=== PATIENT | female | born 1965 | race Caucasian/White ===

== ENCOUNTER 2023-07-27 08:02 | Emergency (ER) | payer OTHER, SELFPAY ==
[2023-07-27 08:10] VITALS: BP 165/86; PULSE 84; RESP 20; TEMP 37.7; O2SAT 98
--- NOTE | 2023-07-27 08:27 | ED.GENADULT ---
HPI - General Adult General Chief complaint: Upper Respiratory Infection Stated complaint: Sore Throat/Cough/Headache Source: patient Mode of arrival: ambulatory Limitations: no limitations History of Present Illness HPI narrative: Patient presents for evaluation of sick symptoms since yesterday. Symptoms include fever, sore throat, headache, rhinorrhea, body aches, nonproductive cough and nausea. She denies any shortness of breath, chills, vomiting, diarrhea. No recent sick contacts to her knowledge. She is not taking any medications to assist with her symptoms. Related Data Home Medications Medication Instructions Recorded Confirmed levothyroxine 75 mcg tablet mcg 07/27/23 lisinopril 20 mg tablet mg 07/27/23 Allergies Allergy/AdvReac Type Severity Reaction Status Date / Time No Known Allergies Allergy Verified 07/27/23 08:14 Review of Systems Review of Systems: CONSTITUTIONAL: Reports fever. Denies chills, or sweats. EYES: Denies visual changes, redness, or discharge. ENT: Reports sore throat and rhinorrhea. Denies otalgia. CARDIOVASCULAR: Denies chest pain, palpitations, or edema. RESPIRATORY: Reports cough. Denies shortness of breath. GASTROINTESTINAL: Denies abdominal pain, nausea, vomiting, or diarrhea. GENITOURINARY: Denies dysuria or hematuria. SKIN: Denies rash or itching. MUSCULOSKELETAL: Reports generalized body aches. NEUROLOGIC: Reports headache. Denies numbness, dizziness, or weakness. PSYCHIATRIC: Denies anxiety or depression. PMFSH Past Medical History Medical History Hypertension Surgical History Surgical History No pertinent past surgical history Family History Family History Mother Family history non-contributory Social History Social History Substance use: never Living arrangements: with family Gender identity (if verbalized by the patient): Female Sexual Orientation (if Verbalized by the Patient): Straight or Heterosexual Spiritual care concerns: No Exam Narrative: GENERAL: Well-appearing, well-nourished, and in no acute distress. HEAD: Normocephalic, atraumatic. EYES: PERRLA and EOMI. ENT: Nares clear, no rhinorrhea or epistaxis. Mucous membranes moist. Oropharynx without tonsillar hypertrophy exudate or other lesions. Bilateral TMs pearly mejia nonbulging NECK: Supple. No adenopathy or masses. No carotid bruits or JVD CHEST: Clear to auscultation. No respiratory distress. No wheezes rales or rhonchi HEART: Regular rate and rhythm. No murmur heard. Normal peripheral pulses. ABDOMEN: Soft, nontender, nondistended, normal active bowel sounds. EXTREMITIES: Normal range of motion. No edema. SKIN: Warm, dry, no rash. NEURO: No focal deficits. Alert and oriented x3. PSYCH: Normal mood and affect. Course Course Emergency Course: This is a 57-year-old female who presented for evaluation of sick symptoms. Strep and COVID were positive. Will discharge with Zofran and amoxicillin. Increase hydration. Bqku-[id number] agents for symptom management. Quarantine in alignment with CDC recommendations. Follow-up with primary provider. Go to the ER for worsening symptoms. Patient in agreement with plan of care. Level of Care: Express Care Visit Vital Signs Vital signs: Vital Signs Temperature 37.7 C H 07/27/23 08:10 Pulse Rate 84 07/27/23 08:10 Respiratory Rate 20 07/27/23 08:10 Blood Pressure 165/86 H 07/27/23 08:10 Pulse Oximetry 98 07/27/23 08:10 Oxygen Delivery Room Air 07/27/23 08:10 Temperature 37.7 C H 07/27/23 08:10 Pulse Rate 84 07/27/23 08:10 Respiratory Rate 20 07/27/23 08:10 Blood Pressure 165/86 H 07/27/23 08:10 Pulse Oximetry 98 07/27/23 08:10 Oxygen Deli
== END 2023-07-27 08:30 | disposition home or self-care (01) ==
PROVIDERS: Emergency Provider Nurse Practitioner
DX: U07.1 COVID-19 (principal); I10 Essential (primary) hypertension; Z79.899 Other long term (current) drug therapy
CPT/HCPCS: 87426; 87804; 87880; 99203; C9803; G0463

== ENCOUNTER 2023-12-11 09:14 | Emergency (ER) | payer OTHER, SELFPAY ==
[2023-12-11 09:20] VITALS: BP 120/71; PULSE 76; RESP 20; TEMP 36.9; O2SAT 100
--- NOTE | 2023-12-11 10:16 | ED.GENADULT ---
HPI - General Adult General Chief complaint: Extremity Problem,Nontraumatic Stated complaint: Left foot pain Time Seen by Provider: 12/11/23 09:52 Source: patient Mode of arrival: ambulatory Limitations: no limitations History of Present Illness HPI narrative: Patient presents for evaluation of pain in the arch of her left foot for the last 2 months. 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 She states pain is constant, 8/10 in severity and sharp. She denies any precipitating event or injury. She tried taking aleve without much improvement in her symptoms. Denies other symptoms. Related Data Home Medications Medication Instructions Recorded Confirmed levothyroxine 75 mcg tablet 75 mcg PO DAILY 07/27/23 12/11/23 lisinopril 20 mg tablet (Zestril) 20 mg PO DAILY 07/27/23 12/11/23 topiramate 50 mg tablet 50 mg PO DAILY 12/11/23 12/11/23 Allergies Allergy/AdvReac Type Severity Reaction Status Date / Time No Known Allergies Allergy Verified 12/11/23 09:33 Review of Systems Review of Systems: CONSTITUTIONAL: Denies fever, chills, or sweats. EYES: Denies visual changes, redness, or discharge. ENT: Denies rhinorrhea, congestion, sore throat, or otalgia. CARDIOVASCULAR: Denies chest pain, palpitations, or edema. RESPIRATORY: Denies cough or dyspnea. GASTROINTESTINAL: Denies abdominal pain, nausea, vomiting, or diarrhea. GENITOURINARY: Denies dysuria or hematuria. SKIN: Denies rash or itching. MUSCULOSKELETAL: Reports pain in the arch of the left foot NEUROLOGIC: Denies headache, numbness, dizziness, or weakness. PSYCHIATRIC: Denies anxiety or depression. [facility] Past Medical History Medical History Hypertension Surgical History Surgical History No pertinent past surgical history Family History Family History Mother Family history non-contributory Social History Social History Substance use: never Living arrangements: with family Gender identity (if verbalized by the patient): Female Sexual Orientation (if Verbalized by the Patient): Straight or Heterosexual Spiritual care concerns: No Exam Narrative: GENERAL: Well-appearing, well-nourished, and in no acute distress. HEAD: Normocephalic, atraumatic. EYES: PERRLA and EOMI. ENT: Nares clear, no rhinorrhea or epistaxis. Mucous membranes moist. Oropharynx without tonsillar hypertrophy exudate or other lesions. Bilateral TMs pearly mejia nonbulging NECK: Supple. No adenopathy or masses. No carotid bruits or JVD CHEST: Clear to auscultation. No respiratory distress. No wheezes rales or rhonchi HEART: Regular rate and rhythm. No murmur heard. Normal peripheral pulses. ABDOMEN: Soft, nontender, nondistended, normal active bowel sounds. EXTREMITIES: Normal range of motion. No edema. There is tenderness in the plantar aspect of the arch of the left foot SKIN: Warm, dry, no rash. NEURO: No focal deficits. Alert and oriented x3. PSYCH: Normal mood and affect. Course Course Emergency Course: This is a 58-year-old female who presented for evaluation of pain in the arch of the left foot. This is a classic presentation of plantar fasciitis. I did offer to check an x-ray to rule out alternative pathology including stress fracture. Patient declined. Will purchase arch supports. 800 mg ibuprofen at home for pain. Follow-up with primary provider. Go to the ER for worsening symptoms. Patient in agreement with plan care. Level of Care: Express Care Visit Vital Signs Vital signs: Vital Signs Temperature 36.9 C 12/11/23 09:20 Pulse Rate 76 12/11/23 09:20 Respiratory Rate 20 12/11/23 09:20 Blood Pressure 120/71 12/11/23 09:20 Pulse Oximetry 100 12/11/23 09:20 Oxygen oDnna
== END 2023-12-11 09:58 | disposition home or self-care (01) ==
PROVIDERS: Emergency Provider Nurse Practitioner
DX: M72.2 Plantar fascial fibromatosis (principal); I10 Essential (primary) hypertension
CPT/HCPCS: 99213; G0463

== ENCOUNTER 2024-07-03 14:23 | Outpatient (CLI) | payer OTHER, SELFPAY ==
--- NOTE | ~2024-07-03 | XR_ITS ---
Left foot Technique: AP, oblique, and lateral views were obtained. Clinical History: Heel pain Findings: No acute fracture or dislocation is seen. Osseous alignment is anatomic. Joint spaces are p reserved without erosive or degenerative change. Small plantar calcaneal spur noted. Soft tissues are unremarkable. Impression: Small plantar calcaneal spur. Reviewed, dictated and finalized at location . Impression: Small plantar calcaneal spur.
== END 2024-07-03 14:24 | disposition home or self-care (01) ==
LOC: MICIMG 14:25
DX: M77.32 Calcaneal spur, left foot (principal)
CPT/HCPCS: 73630

== ENCOUNTER 2024-09-14 10:39 | Emergency (ER) | payer OTHER, SELFPAY ==
--- NOTE | 2024-09-14 10:42 | ED_ITS ---
HPI - Female Genitourinary General Chief complaint: Urogenital-Female Stated complaint: Urinary Problem Time Seen by Provider: 09/14/24 10:51 Source: patient and RN notes reviewed Mode of arrival: ambulatory Limitations: no limitations History of Present Illness HPI Narrative: 59-year-old female presents with concern of for 2 day history of urinary frequency, urgency, dysuria, suprapubic pressure. She denies fever, aches chills sweats, nausea, vomiting. Reports headache. She took azo 4 hours ago MD elicited complaint: UTI Related Data Home Medications ?Medication ?Instructions ?Recorded ?Confirmed ?Last Taken ?Type levothyroxine 75 mcg tablet 75 mcg PO DAILY 07/27/23 09/14/24 Unknown History lisinopril 20 mg tablet (Zestril) 20 mg PO DAILY 07/27/23 09/14/24 Unknown History topiramate 50 mg tablet 50 mg PO DAILY 12/11/23 09/14/24 Unknown History acetaminophen 300 mg-codeine 30 mg tablet 09/14/24 Unknown History tablet Allergies Allergy/AdvReac Type Severity Reaction Status Date / Time No Known Allergies Allergy Verified 09/14/24 10:45 Review of Systems Review of Systems: CONSTITUTIONAL: Denies malaise, chills, sweats, or fever. CARDIOVASCULAR: Denies chest pain, palpitations, or edema. RESPIRATORY: Denies cough or dyspnea. GASTROINTESTINAL: Denies abdominal pain, nausea, vomiting, diarrhea GENITOURINARY: Reports dysuria, frequency, urgency, suprapubic pressure. Denies flank pain or hematuria. SKIN: Denies rash or itching. MUSCULOSKELETAL: Denies back pain or myalgia. All systems reviewed & are unremarkable except as noted in HPI and below PMFSH Past Medical History Medical History Hypertension Surgical History Surgical History No pertinent past surgical history Family History Family History Mother Family history non-contributory Social History Social History Substance use: never Living arrangements: with family Gender identity (if verbalized by the patient): Female Sexual Orientation (if Verbalized by the Patient): Straight or Heterosexual Spiritual care concerns: No Comments At time of signature, agree with nursing past medical, surgical, social and family history. There is no relevant family history pertinent to the presenting complaint Exam Narrative: GENERAL: Well-appearing, well-nourished, and in no acute distress. HEAD: Normocephalic. EYES: PERRLA, conjunctivae clear. NECK: Supple. No lymphadenopathy CHEST: Clear to auscultation. No respiratory distress. HEART: Regular rate and rhythm. ABDOMEN: Soft, nontender upon palpation, nondistended, normal active bowel s ounds, no palpable or pulsatile masses, no guarding. No CVA tenderness SKIN: Warm, dry, no rash. NEURO: Alert and oriented x3. PSYCH: Normal mood and affect Course Course Emergency Course: Patient is aware of diagnosis, understands and agrees to treatment plan. Anticipatory guidance given. Patient agrees to follow-up as directed and is aware of reasons to seek care at the emergency department. Portions of this record may have been created with voice recognition software Level of Care: Express Care Visit Vital Signs Vital signs: Reviewed. MDM - Female Genitourinary MDM Narrative Medical decision making narrative: Exam findings and UA show no acute concerns or changes; patient is non-toxic appearing and is in no distress. Patient is appropriate for outpatient treatment and follow-up. Differential Diagnosis Differential diagnosis: Likely urinary tract infection and cystitis Critical Care Time Critical Care Time Critical Care Time: No Discharge Plan Discharge Clinical Impression: Symptoms of urinary tract infection Patient Disposition: Home, Self-Care Condition: Stable Instructions: Antibiotic Form, Urinary Tract Infection in Women (ED) Additional Instructions: We will send a urine culture to the lab; if the culture identifies an organism that the prescribed antibiotic will not treat, you will receive a phone call from an urgent care staff member and an appropriate antibiotic will be prescribed. -Your symptoms should begin to improve within a day of starting antibiotics. But you should finish all the antibiotic pills you get. Otherwise your infection might come back. -Also recommend: increase water intake. Tylenol/ibuprofen as needed for pain or fever -Follow-up with your primary care provider for urine recheck or seek ER visit if condition worsens with high fever, nausea, vomiting and severe back pain. Patient Language: Upper Sorbian Prescriptions: New amoxicillin-pot clavulanate 875-125 mg tablet 1 tablet PO Q12H 10 Days Qty: 20 0RF No Action acetaminophen-codeine 300-30 mg tablet lisinopril [Zestril] 20 mg tablet 20 mg PO DAILY levothyroxine 75 mcg tablet 75 mcg PO DAILY topiramate 50 mg tablet 50 mg PO DAILY ibuprofen 800 mg tablet 800 mg PO TID PRN (Reason: pain) Qty: 30 0RF Follow-up/Referrals: UNKNOWN,DOCTOR [Primary Care Provider] - Stand Alone Forms: Work/School Release IP Time of Disposition: 11:01
[2024-09-14 10:46] VITALS: BP 168/94; PULSE 82; RESP 16; TEMP 37; O2SAT 100
== END 2024-09-14 11:04 | disposition home or self-care (01) ==
PROVIDERS: Emergency Provider Nurse Practitioner
DX: R35.0 Frequency of micturition (principal); R39.15 Urgency of urination; R30.0 Dysuria; I10 Essential (primary) hypertension
CPT/HCPCS: 87077; 87086; 87186; 99213; G0463

== ENCOUNTER 2024-11-23 09:45 | Outpatient (CLI) | payer OTHER, SELFPAY ==
--- NOTE | ~2024-11-23 | MM_ITS ---
EXAMINATION: MM screening yrn BI w aubrey HISTORY: Screening TECHNIQUE: Craniocaudal and mediolateral oblique 3-D tomosynthesis images were obtained and synthetic 2-D images were generated. CAD analysis was submitted and interpreted. COMPARISON: No prior mammogram is available for comparison at this institution. BREAST PARENCHYMAL COMPOSITION: Not Dense. The breasts are almost entirely fatty. FINDINGS: There is no evidence of suspicious mass, calcification, or architectural distortion to sugg est malignancy in either breast. There has been no suspicious interval change. IMPRESSION: 1. No mammographic evidence of malignancy. 2. Recommend routine screening mammography in one year. BI-RADS Category 1: Negative Reviewed, dictated and finalized at location B.
== END 2024-11-23 09:46 | disposition home or self-care (01) ==
DX: Z12.31 Encounter for screening mammogram for malignant neoplasm of breast (principal)
CPT/HCPCS: 77063; 77067

== ENCOUNTER 2025-08-06 08:04 | Emergency (ER) | payer OTHER, SELFPAY ==
--- OUTSIDE RECORDS SUMMARY | 2024-06-06 04:32 | XMS_ITS ---
Author Organization [facility] [employer] [facility] Address [address] [place] [address] Care Team Providers Care Electric Meter Tester Helper Name Role Phone Bisi Antony Primary Care Provider REASON FOR VISIT PRTL: Gynecology Referral Encounters Encounter Location Date Provider Diagnosis [address] [address] 06/06/2024 Bisi Antony PLAN OF TREATMENT No Information Progress Notes * Lianet VAIL LuzDOB:1965 (58 yo F)Acc No.[id number]:06/06/2024 Patient: Lianet VAIL :1965 Age:58 Y Sex:Female Phone: Address:[address] [place] [id number] Subjective: * Chief Complaints: * PRTL: Gynecology Referral * Medical History: * Surgical History: * Hospitalization/Major Diagno stic Procedure: * Medications: Objective: Assessment: Plan: * Treatment: * Procedure Codes: * true * Date:
--- OUTSIDE RECORDS SUMMARY | 2024-07-10 05:00 | XMS_ITS ---
Author Organization [facility] [employer] [facility] Address [address] [place] [address] Care Team Providers Care Parking Meter Servicer Name Role Phone Bsii Antony Primary Care Provider ALLERGIES Allergen (clinical drug ingredient) Drug/Non Drug Allergy documented on EMR Reaction Allergy Type Onset Date Status codeine Codeine vomiting Drug Allergy Active REASON FOR REFERRAL Reason Chronic LT heel pain , noted calcaneal spur on XR, no improvement in ssx with conservative tx. Thank you! Diagnosis 1 Left foot pain (M79. 672) Referral Organization [facility] Referring Provider First Name Bisi Referring Provider Last Name Cassia Referring Provider Speciality Family Med icine Referred Provider [facility] Referred Provider Specialty Podiatry Referral Priority Routine REASON FOR VISIT F/U XR, BSV - TELEPHONE ENCOUNTER MEDICATIONS Medication SIG (Take, Route, Frequency, Duration) Notes Start Date End Date Status Amitriptyline HCl 10 MG 1 tablet at bedtime Orally Once a day for 30 days 02/28/2024 Active Meloxicam 15 MG 1/2-1 tablet Orally Once a day as needed for pain for 30 days 04/10/2024 Active hydrOXYzine HCl 25 MG 1/2-1 tablet as needed Orally twice daily for 30 days 02/28/2024 Active Escitalopram Oxalate 10 MG 1 tablet at bedtime Orally Once a day for 90 days 02/28/2024 Active Famotidine 20 MG 1 tablet Orally Once a day as needed for 90 days heartburn/reflux 03/25/2023 Active Levothyroxine Sodium 75 MCG 1 tablet in the morning on an empty stomach Orally Once a day for hypothyroidism for 90 days hypothyroid Active Lisinopril-hydroCHLO ROthiazide 20-12.5 MG 1 tablet in the morning Orally Once a day for 100 days 05/22/2024 Active PROBLEMS Problem Type ICD Code Onset Dates Problem Status W/U Status Risk SNOMED Code Notes Problem Hypothyroid (E03.9) Active confirmed Hypothyroid (02753922) Problem Hypertension (I10) Active confirmed Hypertension (73288619) Problem Migraine (G43.909) Active confirmed Migraine (17360392) VITAL SIGNS Height 64 in 07/10/2024 TELEPHONE ENCOUNTER Encounters Encounter Location Date Provider Diagnosis [facility] [address] [place] [address] 07/10/2024 Bisi Antony Left foot pain M79.672 ASSESSMENTS Encounter Date Diagnosis Assessment Notes Treatment Notes Treatment Clinical Notes Section Notes 07/10/2024 Left foot pain (ICD-10 - M79.672) Reviewed LT foot XR with pt. XR result indicates small calcaneal spur. Encouraged pt to rest foot frequently throughout the day, wear supportive shoes, consider orthodics, ice/heat applications, and discussed analgesics. Continue rx'd meloxicam (avoiding all other NSAIDs) with food, but will add 1g acetaminophen TID PRN for additional pain relief. As pt reports pain continues w/o any improvement since ANNIE, will refer to podiatry. Pt voiced understanding and agreement with POC as discussed. All questions and concerns were addressed to pt satisfaction. PLAN OF TREATMENT Referrals Referral Date Details Chronic LT heel pain , noted calcaneal spur on XR, no improvement in ssx with conservative tx. Thank you! , [facility] Next Appt Details Follow Up: prn, Reason: Progress Notes * Lianet ROACH AnnDOB:1965 (58 yo F)Acc No.[id number]:07/10/2024 Patient: Lianet ROACH Provider: Bisi Antony APRN :1965 Age:58 Y Sex:Female Date:07/10/2024 Phone: Address:[address] [place], [place] [id number] Subjective: * Chief Complaints: * F/U XRBSV - TELEPHONE ENCOUNTER * HPI: *: Pt presents via TELEPHONE ENCOUNTER for F/U LT heel pain and XR. C all placed at: 1107. No answer, VM left. Pt returned call at 11:11. T his encounter was undertaken via [video/telephone]. I introduced myself as ANDREW Dozier, and greeted the patient by name and then verified their location [[place]]. We reviewed the appropriateness of virtual care for this visit and the limitations of telemedicine. All issues below were discussed and addressed but no physical exam was performed except as documented. If it was felt the patient should be evaluated [id number], they were directed to the clinic for care either now or at a subsequent visit as indicated below. Verbal consent for telemedicine visit obtained from the patient. * ROS: General/Constitutional: General Denies:, chills, fatigue, fever. Podiatric LEFT FOOT PAIN WITH WALKING OR PRESSURE. SLIGHT SWELLING TO SIDE OF FOOT SOMETIMES. DENIES:, burning, wound, numbness. * Medical History: * Surgical History: * Hospitalization/Major Diagno stic Procedure: * Medications: TakingLevothyroxine Sodium 75 MCG Tablet 1 tablet in the morning on an empty stomach Orally Once a day for hypothyroidism Amitriptyline HCl 10 MG Tablet 1 tablet at bedtime Orally Once a day (tapering off to discontinue)Escitalopram Oxalate 10 MG Tablet 1 tablet at bedtime Orally Once a day Famotidine 20 MG Tablet 1 tablet Orally Once a day as needed Meloxicam 15 MG Tablet 1/2-1 tablet Orally Once a day as needed for pain hydrOXYzine HCl 25 MG Tablet 1/2-1 tablet as needed Orally twice daily (for anxiety)Lisinopril-hydroCHLOROthiazide 20-12.5 MG Tablet 1 tablet in the morning Orally Once a day Taking Levothyroxine Sodium 75 MCG Tablet 1 tablet in the morning on an empty stomach Orally Once a day for hypothyroidism Taking Amitriptyline HCl 10 MG Tablet 1 tablet at bedtime Orally Once a day (tapering off to discontinue)Taking Escitalopram Oxalate 10 MG Tablet 1 tablet at bedtime Orally Once a day Taking Famotidine 20 MG Tablet 1 tablet Orally Once a day as needed Taking Meloxicam 15 MG Tablet 1/2-1 tablet Orally Once a day as needed for pain Taking hydrOXYzine HCl 25 MG Tablet 1/2-1 tablet as needed Orally twice daily (for anxiety)Taking Lisinopril-hydroCHLOROthiazide 20-12.5 MG Tablet 1 tablet in the morning Orally Once a day * Allergies: Codeine: vomiting - Criticality Unknownno[Allergies Verified] Objective: * Vitals: Ht:64in TELEPHONE ENCOUNTER. * Examination: General Examination *: TELEPHONE ENCOUNTER. Assessment: * Assessment: 1. Left foot pain - M79.672 (Primary) Plan: * Treatment: * Procedure Codes: * Follow Up: prn * Billing Information: * Visit Code: 45054 PHN E/M by PHYS 11-20 MIN. Modifiers: 95 * Procedure Codes: * Sign off status: Completed true * Provider: Bisi Antony APRN Date: 07/10/2024 History and Physical Notes * Examination Category Sub-Category Detail Notes Category Not es General Examination * TELEPH ONE ENCOUNTER Consultation Request Notes Referral Date Referring Provider Referred Provider Not es 07/10/2024 Bisi Antony [facility], Daniella suarez LT heel pain, noted calcaneal spur on XR, no improvement in ssx with conservative tx. Thank you!
--- OUTSIDE RECORDS SUMMARY | 2024-07-10 05:08 | XMS_ITS ---
Author Organization [facility] [employer] [facility] Address [address] [place] [address] Care Team Providers Care Commanding Officer Traffic Division Name Role Phone Bisi Antony Primary Care Provider REASON FOR VISIT XR results Encounters Encounter Location Date Provider Diagnosis [address] [address] 07/10/2024 Bisi Antony PLAN OF TREATMENT No Information Progress Notes * Lianet VAIL LuzDOB:1965 (58 yo F)Acc No.[id number]:07/10/2024 Patient: Lianet VAIL :1965 Age:58 Y Sex:Female Phone: Address:[address] [place] [phone] * true * Date:
--- OUTSIDE RECORDS SUMMARY | 2024-07-17 08:07 | XMS_ITS ---
Author Organization [facility] [employer] [facility] Address [address] [place] [address] Care Team Providers Care Radiology Supervisor Name Role Phone Bisi Antony Primary Care Provider REASON FOR VISIT PRTL: Podiatry Referral Encounters Encounter Location Date Provider Diagnosis [address] [address] 07/17/2024 Bisi Antony PLAN OF TREATMENT No Information Progress Notes * Lianet VAIL LuzDOB:1965 (58 yo F)Acc No.[id number]:07/17/2024 Patient: Lianet VAIL :1965 Age:58 Y Sex:Female Phone: Address:[address] [place] [address] Subjective: * Chief Complaints: * PRTL: Podiatry Referral * Medical History: * Surgical History: * Hospitalization/Major Diagno stic Procedure: * Medications: Objective: Assessment: Plan: * Treatment: * Procedure Codes: * true * Date:
--- OUTSIDE RECORDS SUMMARY | 2024-07-18 03:27 | XMS_ITS ---
Author [facility] Address [address] [place] [address] Care Team Providers Care Stain Applicator Name Role Phone Bisi Antony Primary Care Provider REASON FOR VISIT Referral F/U Encounters Encounter Location Date Provider Diagnosis [address] [address] 07/18/2024 Bisi Antony PLAN OF TREATMENT No Information Progress Notes * Lianet VAIL LuzDOB:1965 (58 yo F)Acc No.[id number]:07/18/2024 Patient: Lianet VAIL :1965 Age:58 Y Sex:Female Phone: Address:[address] [place] [address] * true * Date:
[2025-08-06 08:10] VITALS: BP 149/103; PULSE 82; RESP 20; TEMP 36.6; O2SAT 100
--- NOTE | 2025-08-06 08:10 | ED_ITS ---
HPI - URI/Sore Throat General Chief Complaint: Upper Respiratory Infection Stated Complaint: Body Aches ,Nasal Congestion Source: patient, family, RN notes reviewed and old records reviewed Mode of arrival: ambulatory Limitations: no limitations History of Present Illness HPI Narrative: 60 year old female presents to [facility] care accompanied by spouse with complaints of nasal congestion, sinus pressure and drainage with headaches for 2 week duration and has had some body aches for the past week with no known temperatures. Patient reports that she has been taking Mucinex and NyQuil for her symptoms without resolution. Patient states that cough has been worse at night denies any shortness of breath or any GI symptoms. MD elicited complaint: cough, rhinorrhea, nasal congestion, sinus pain and other (headache) Onset (ago): week(s) (2) Severity: moderate Description of mucous: clear Able to tolerate fluids by mouth: Yes Treatments prior to arrival: other (Mucinex, NyQuil) Related Data Home Medications ?Medication ?Instructions ?Recorded ?Confirmed ?Last Taken ?Type levothyroxine 75 mcg tablet 75 mcg PO DAILY 07/27/23 0 09/14/24 Unknown History lisinopril 20 mg tablet (Zestril) 20 mg PO DAILY 07/2709/14/24 Unknown History topiramate 50 mg tablet 50 mg PO DAILY 12/11/2305/31 Unknown History Allergies Allergy/AdvReac Type Severity Reaction Status Date / Time No Known Allergies Allergy Verified 09/14/24 10:45 Review of Systems Review of Systems: CONSTITUTIONAL: Reports malaise, no chills, sweats, or fever. EYES: Denies visual changes, redness, or discharge. ENT: Reports rhinorrhea, congestion, sinus pain,no otalgia and no sore throat. CARDIOVASCULAR: Denies chest pain, palpitations, or edema. RESPIRATORY: Reports cough.? Denies dyspnea. GASTROINTESTINAL: Denies abdominal pain, nausea, vomiting, diarrhea SKIN: Denies rash or itching. MUSCULOSKELETAL: Reports myalgia. NEUROLOGIC: Reports headache. All systems reviewed & are unremarkable except as noted in HPI and below PMFSH Past Medical History Medical History Hypothyroidism Hypertension Surgical History Surgical History No pertinent past surgical history Family History Family History Mother Family history non-contributory Social History Social History Substance use: never Living arrangements: with family Gender identity (if verbalized by the patient): Female Sexual Orientation (if Verbalized by the Patient): Straight or Heterosexual Spiritual care concerns: No Comments At time of signature, agree with nursing past medical, surgical, social and family history. There is no relevant family history pertinent to the presenting complaint Exam Narrative: GENERAL: Well-appearing, well-nourished, and in no acute distress. HEAD: Normocephalic EYES: PERRLA, conjunctivae clear ENT: Nares clear, turbinates edematous and erythematous, clear discharge, sinus pressure and headaches reported. Mucous membranes moist. TM pearly mejia with dull light reflex bilaterally; no tragal tenderness. Oropharynx erythematous without lesions. Tonsils not enlarged and without exudate, no drooling, no hoarseness, no trismus, uvula midline.post nasal drainage NECK: Supple. No lymphadenopathy CHEST: Clear to auscultation, breath sounds equal. No wheezing, rhonchi, rales, or stridor. No respiratory distress, speaks in full sentences.dry cough SAO2 100% on room air HEART: Regular rate and rhythm. No murmur heard. SKIN: Warm, dry, no rash. NEURO: Alert and oriented x3. PSYCH: Normal mood and affect Course Course Emergency Course: Patient is aware of diagnosis, understands and agrees to treatment plan.? Anticipatory guidance given.? Patient agrees to follow-up as directed and is aware of reasons to seek care at the emergency department. Portions of this record may have been created with voice recognition software Level of Care: Express Care Visit Vital Signs Vital signs: Vital Signs Temperature 36.6 C 08/06/25 08:10 Pulse Rate 82 08/06/25 08:10 Respiratory Rate 20 08/06/25 08:10 Blood Pressure 149/103 H 08/06/25 08:10 Pulse Oximetry 100 08/06/25 08:10 Oxygen Delivery Room Air 08/06/25 08:10 Temperature 36.6 C 08/06/25 08:10 Pulse Rate 82 12/01/25 08:10 Respiratory Rate 20 08/06/25 08:10 Blood Pressure 149/103 H 08/06/25 08:10 Pulse Oximetry 100 08/06/25 08:10 Oxygen Delivery Room Air 08/06/25 08:10 Reviewed MDM - URI/Sore Throat MDM Narrative Medical decision making narrative: Differential diagnosis considered: Raymond virus, strep pharyngitis, allergic rhinitis, upper respiratory tract infection, sinusitis, rhinosinusitis, nasopharyngitis. viral pharyngitis, otitis media, otitis externa, pneumonia, bronchitis, viral cough syndrome, viral syndrome, and influenza.? Exam findings show no acute concerns or changes; patient is non-toxic appearing and is in no distress.? Patient is appropriate for outpatient treatment and follow-up. Differential Diagnosis Differential diagnosis: Likely upper respiratory infection, sinusitis, viral infection and other (cough ) Medical Records Attestation: I reviewed the patient's medical records. Lab Data Attestation: I reviewed the patient's lab results. Critical Care Time Critical Care Time Critical Care Time: No Discharge Plan Discharge Clinical Impression: Sinusitis, bacterial Patient Disposition: Home Condition: Stable Instructions: Antibiotic Form, Sinusitis (ED) Additional Instructions: Increase fluids especially juices and water Continue your Mucinex daily Hgrq-rbq-eyhzacj cough and cold medicine of your choice for your symptoms heat to the face 20-30 minutes 4-6 times a day for pain Salt water gargles, throat lozenges or throat sprays as desired Antibiotic as directed--finished the medication Zyrtec, Claritin or Linda daily include Coricidin brand decongestant If your symptoms persist, change or worsen significantly before you can contact your personal physician then please, without delay, go to the emergency department for further evaluation. Follow-up with PCP in 7-10 days or sooner if needed Follow up with PCP soon in regards to your blood pressure which is elevated above threshold for referral. Blood pressure above 120/80 may indicate pre- hypertension.149/103 patient has not taken her morning blood pressure medication Patient Language: Korean Prescriptions: New amoxicillin 500 mg capsule 1,000 mg PO Q12H 10 Days Qty: 40 0RF No Action lisinopril [Zestril] 20 mg tablet 20 mg PO DAILY levothyroxine 75 mcg tablet 75 mcg PO DAILY topiramate 50 mg tablet 50 mg PO DAILY ibuprofen 800 mg tablet 800 mg PO TID PRN (Reason: pain) Qty: 30 0RF Follow-up/Referrals: UNKNOWN,DOCTOR [Primary Care Provider] Time of Disposition: 08:26 Quality [place] Coma Scale Eyes: Open Verbal: Oriented and Alert Motor: Follows Commands [place] Coma Total Score: 15
--- OUTSIDE RECORDS SUMMARY | 2025-08-06 08:13 | XMS_ITS | Patient Health Record ---
Author Organization [facility] Address [address] [place] [address] Care Team Providers Care Accountant Certified Public Name Role Phone Jennifer Antonyney Primary Care Provider ALLERGIES Allergen (clinical drug ingredient) Drug/Non Drug Allergy documented on EMR Reaction Allergy Type Onset Date Status codeine Codeine vomiting Drug Allergy Active RESULTS Component Value Reference Range Notes Cologuard (Not yet reviewed by provider) Interpretation: Performing Lab: Notes/Report: Cologuard Result Cancelled - Order Not Applica ble REASON FOR REFERRAL No Information MEDICATIONS Medication SIG (Take, Route, Frequency, Duration) Notes Start Date End Date Status Levothyroxine Sodium 75 MCG 1 tablet in the morning on an empty stomach Orally Once a day for hypothyroidism for 90 days hypothyroid Active Amitriptyline HCl 10 MG 1 tablet at [...] needed for 90 days heartburn/reflux 03/25/2023 Active Lisinopril-hydroCHLO ROthiazide 20-12.5 MG 1 tablet in the morning Orally Once a day for 100 days 05/22/2024 Active IMMUNIZATIONS Vaccine Route Administration Date Status Comme nts Boostrix- Tdap IM Intramuscular 03/25/2023 Administered SOCIAL HISTORY Tobacco Use: Social History Observation Description Date Details (start date - stop date) Never Smoker NA - NA Sex Assigned At : Social History Observation Description Sex Assigned At Unknown Tobacco Use/Smoking Question Answer Notes Are you a nonuser Alcohol Questionnaire Question Answer Notes Did you have a drink contain ing alcohol in the past year? Yes How often did you have a dri nk containing alcohol in the past year? 4 or more times a week (4 points) How many drinks did you have on a typical day when you were drinking in the past year? 7 to 9 drinks (3 points) How often did you have 6 or more drinks on one occasion in the past year? Weekly (3 points) Points 10 Interpretation Positive PROBLEMS Problem Type ICD Code Onset Dates Problem Status W/U Status Risk SNOMED Code Notes Problem Hypertension (I10) Active confirmed Hyp ertension (23372032) Problem Migraine (G43.909) Active confirmed Bert jacquelyn (53781439) Problem GERD (gastroesophageal reflux disease) (K21.9) Active confirmed Gastroesophagea l reflux disease (055154385) Problem Hypothyroid (E03.9) Active confirmed Hy pothyroid (71861578) Problem Obesity, morbid, BMI 40.0-49.9 (E66.01) Active confirmed 425897072 Problem Chronic diarrhea (K52.9) Active confirmed Chronic diarrhe a (857171563) Problem Primary hypertension (I10) Active confirmed 17427990 Problem Obesity (BMI 35.0-39.9 without comorbidity) (E66.9) Active confirmed Obesity (364523576) Problem ETOH abuse (F10.10) Active confirmed 15 243233 Problem Mixed anxiety and depressive disorder (F41.8) Active confirmed 243231930 Problem Hypothyroidism, unspecified type (E03.9) Active confirmed 82208195 Problem HLD (hyperlipidemia) (E78.5) Active confirmed Hyperlipidaemia (58825623) Problem Other hyperlipidemia (E78.49) Active confirmed 93711439 Problem Gastroesophageal reflux disease, unspecified whether esophagitis present (K21.9) Active confirmed 721319733 Encounters Encounter Location Date Provider Diagnosis [facility] [address] [place] [address] 10/09/2024 Bisi Antony [facility] [address] [place] [address] 04/10/2025 Bisi Antony PLAN OF TREATMENT Pending Test Test Name Order Date Cologuard 04/10/2025 Insurance Providers Payer Name Payer Address Payer Phone Subscriber Number Group Number Insured Name Patient Relationship to Insured Coverage Start Date Coverage End Date [employer] [address] [place] [phone] [id number] Case Josh Sanabria Spouse - patient is the spouse of the insured MEDICAL (GENERAL) HISTORY Medical History History ICD Code Hypothyroid E03.9 Hypertension I10 Migraine G43.909 HLD (hyperlipidemia) E78.5 Mixed anxiety and depressive disorder F4 1.8 GERD (gastroesophageal reflux disease) K 21.9 Obesity (BMI 35.0-39.9 without comorbidi ty) E66.9 Surgical History Surgery Date(Month/Year) bilateral ectopic pregnancies resulting in salpingectomys
--- OUTSIDE RECORDS SUMMARY | 2025-08-06 08:13 | XMS_ITS | Clinical Summary ---
Author Organization [facility] [address] [place] [address] Care Team Providers Care Patch Finisher Name Role Phone Naresh Neal MD Primary Care Provider + Allergies No known active allergies Medications levothyroxine (SYNTHROID) 75 mcg tablet Take 1 tablet (75 mcg total) by mouth daily 90 tablet 3 9 Active lisinopril (PRINIVIL,ZESTRI L) 10 mg tablet Take 1 tablet (10 mg total) by mouth daily 90 tablet 3 9 Active topiramate (TOPAMAX) 50 mg tablet Take 1 tablet (50 mg total) by mouth daily 90 tablet 3 9 Active ondansetron (Zofran) 4 mg tablet Take 1 tablet (4 mg total) by mouth every 8 (eight) hours as needed for nausea or vomiting 20 tablet 2 0 Active Additional Information Patient not taking.Reported on 09/24/2020 amitriptyline (ELAVIL) 25 mg tabletIndication s:Intractable migraine without aura and with status migrainosus Take 1 tablet (25 mg total) by mouth nightly 90 tablet 3 1 Active Active Problems Problem Noted Date Diagnosed Date Herpes zoster without complication 09/24/2020 Assessment & Plan (09/24/2020 9:08 AM MAILS SUPERVISOR): Acyclovir as prescribed Advised patient to take Tramadol for typical pain and may take Leonore for severe pain. Advised patient to report any new or worsening symptoms Gastroenteritis 11/24/2019 Assessment & Plan (11/24/2019 7:55 AM CDT): Clear liquids only, for 24 hours then may advance diet to a bland diet which includes Bananas, Rice, Applesauce and [place] without butter Avoid dairy until no longer having diarrhea Take Tylenol/ibuprofen as needed for pain or fever Call or return if not improving in 48 to 72 hours Acute serous otitis media of left ear 07/13/2018 Assessment & Plan (07/13/2018 4:53 PM MAILS SUPERVISOR): Take Amoxicillin 1 tablet 2 times daily for 10 days Continue all other medications as prescribed Increase fluid intake Ibuprofen or tylenol as needed for fever or pain Follow up if not improving in the next 48 to 72 hours Other microscopic hematuria 09/08/2017 Preventative health care 09/08/2017 Essential hypertension 09/08/2017 Assessment & Plan (09/08/2017 3:02 PM MAILS SUPERVISOR): Hypertension is worsening. Medication changes per orders. Blood pressure will be reassessed in 3 months Start lisinopril, warned about side effects. Hypothyroidism 04/05/2014 Overview (12/11/2016): Hypothyroidism Intractable migraine without aura and with status migrainosus 03/15/2013 Overview (12/10/2016): Migraine Assessment & Plan (06/30/2019 11:16 AM CDT): Toradol injection in clinic today Discussed medication regimen and need to take it daily to prevent migraine that that her medications do not treat the headache if you already have it. Discussed possibility that her Tramadol may be causing a rebound or worse headache. Advised patient to return for any non-resolving or worsening symptoms Immunizations Immunization Administration Dates Next Due Influenza, Unspecified 06/06/2020(Deferr ed: Patient Refused),06/06/2019(Deferred: Patient Refused),09/08/2017(Deferred: Patient Refused) Medical History Medical History Date Comments Headache Thyroid disease Family History Medical History Relation Name Comments Diabetes type II Father Diabetes -T ype 2; Diabetes type II Mother Diabetes -T ype 2; Breast cancer Mother's Sister Cancer -kasie ast; Relation Name Status Comments Father Mother Mother's Sister Social History Tobacco Use Types Packs/Day Years Used Date Smoking Tobacco: Never Smokeless Tobacco: Never Alcohol Use Standard Drinks/Week Comments No 0 (1 standard drink = 0.6 oz pur e alcohol) PHQ-2 Answer Date Recorded PHQ-2 Total Score (If total score is 3 or more points, staff should administer the PHQ-9) 0 09/24/2020 Comments Unknown Sex and Gender Information Value Date Recorded Sex Assigned at Not on file Legal Sex Female 2:33 PM MAILS SUPERVISOR Gender Identity Not on file Sexual Orientation Not on file Last Filed Vital Signs Vital Sign Reading Time Taken Comments Blood Pressure 134/62 09/24/2020 8:26 AM MAILS SUPERVISOR Pulse 79 09/24/2020 8:26 AM MAILS SUPERVISOR Temperature 36.2 C (97.1 F) 09/24/2020 8:26 AM MAILS SUPERVISOR Respiratory Rate 16 09/24/2020 8:26 AM MAILS SUPERVISOR Oxygen Saturation 97% 09/24/2020 8:26 AM MAILS SUPERVISOR Inhaled Oxygen Concentration - - Weight 98.3 kg (216 lb 12.8 oz) 09/24/2020 8:26 AM MAILS SUPERVISOR Height 157.5 cm (5' 2.01) 09/24/2020 8:26 AM CS T Body Mass Index 39.64 09/24/2020 8:26 AM MAILS SUPERVISOR Plan of Treatment Not on file Insurance PPO Care Teams Patch Finisher Relationship Specialty Start Date End Date Naresh Neal MD [address] [place] [id number] PCP - General 12/04/16
--- OUTSIDE RECORDS SUMMARY | 2025-08-06 08:13 | XMS_ITS | Data Portability ---
Author Organization [facility] Address [address] [place] [address] [place] [address] Care Team Providers Care Manager Business Development Hospice Name Role Phone VAUGHN COBB Primary Care Provider Assessment No assessment recorded. Plan of Treatment Reminders Order Date Submit Date Provider Last Modified By Organization Details Last Modified Time Details Appointments HORMONE PROBLEM 2024 11:45A [place] DAVIS MD Not available Not available Not available Lab test, urine 2024 025 [email or web address] [facility], [address], [address], [place], [address], 05/03/2025 15:21:51 Referral None recorded. Procedures None recorded. Surgeries None recorded. Imaging None recorded. Medication Orders None recorded. Patient TargetsNo targets recorded. Patient InstructionsNo instructions recorded. Reason for Referral None Reported. Results Created Date Observation Date Name Description Value Unit Range Abnormal Flag Note LastModifiedBy Organization Detail LastModifiedTime 05/03/2005/03/2025 SURGI NAOMI PATHO LOGY surgical pathology SEE RESULT S BELOW CASE REPOR T: Surgi naomi Patho logy Repor t Case: [id number] Autho maeve pressley Provi laura: Satish Davis MD Colle cted: 05/03 1502 Order ing Locat ion: [place] Patho log[facility] Recei mracos: 05/04 0315 Patho logis t: Sixto Roland MD Speci men: Endoc ervix , ECC ----- ----- ----- ----- ----- ----- ----- ----- ----- ----- ----- ----- ----- ----- ----- ----- ----- ---- FINAL DIAGN OSIS: Endoc ervix , curet tage: -Deta ched fragm ents of low-g rade squam ous intra epith elial lesio n (SANDRA- 1). -Scan t benig n endoc ervic al mucos a. Elect daniela perez d by Sixto Roland MD on 2024 at 1230 CDT ----- ----- ----- ----- ----- ----- ----- ----- ----- ----- ----- ----- ----- ----- ----- ----- ----- ---- CLINI NAOMI INFOR MATIO N: CERVI NAOMI HIGH RISK HUMAN PAPIL LOMAV IRUS (HPV) DNA TEST POSIT MASON R87.8 10 MICRO SCOPI C DESCR IPTIO N: A micro scopi c exami natio n was perfo rmed. Digit al imagi ng was used in the diagn ostic asses sment of this case. GROSS DESCR IPTIO N: A. Endoc ervix . The speci men is label ed with the patie nt's name, demog raphi cs and ECC . Recei marcos in forma kota is a 1.3 x 0.8 x 0.1 [address] of mucus and minut e white -bullard tissu e. The entir e speci men is submi tted in one casse tte. Gross ed by Shey Landers Not Available [facility] (Lab) [address], [place], [address], 05/04/2025 13:34:13 05/03/20 25 05/03/2025 pregn crystal test, urine HCG negati ve Not Available [facility] [address], [place], [address], 05/03/2025 15:18:37 Result Notes None recorded. Procedures Surgical History Date Name Laterality Status Provider Name and Address Organization Details Recorded Time 05/03/20 25 Colposcopy completed Singh Davis MD [address], [place], [address], [facility] 05/03/2025 15:17:32 05/03/20 25 Colposcopy completed Thi Rodriguez [facility] 05/03/2025 14:50:17 05/22/20 24 Date of Last Pap Smear completed Amena [facility] 07/03/2024 14:36:02 09/06/18 96 Tubal Ligation completed Amena Tompkins [facility] 07/03/2024 14:42:36 Imaging Results None recorded. Procedure Notes None recorded. Medical Equipment None Reported. Allergies No known drug allergies Medications Name Sig Start Date Stop Date Status Note LastModified by Organization Details LastModified Time ibuprofen 800 mg tablet TAKE 1 TABLET BY MOUTH THREE TIMES DAILY NEEDED FOR PAIN active Not Available Not Available No t Available lisinopril 20 mg tablet TAKE 1 TABLET BY MOUTH EVERY DAY active Not Available Not Available No t Available ondansetron HCl 4 mg tablet TAKE 2 TABLETS BY MOUTH TWICE DAILY NEEDED FOR NAUSEA OR VOMITING active Not Available Not Available No t Available amitriptylin e 50 mg tablet TAKE 1 TABLET BY MOUTH EVERY DAY AT BEDTIME FOR MIGRAINE PREVENTION active Not Available Not Available N ot Available amoxicillin 500 mg tablet TAKE 1 TABLET BY MOUTH EVERY 12 HOURS active Not Available Not Available No t Available trazodone 100 mg tablet TAKE 1 TABLET BY MOUTH EVERY NIGHT AT BEDTIME active Not Available Not Available No t Available ondansetron 4 mg disintegrati ng tablet DISSOLVE 1 TABLET ON THE TONGUE EVERY 8 HOURS NEEDED FOR NAUSEA OR VOMITING active Not Available Not Available No t Available hydrochlorot hiazide 12.5 mg tablet TAKE 1 TABLET BY MOUTH EVERY DAY IN THE MORNING active Not Available Not Available No t Available Vitals Date Recorded Body height Body mass index (BMI) Body weight Systolic And Diastolic Provider Name and Address Organization Details Last Updated DateTime 05/03/2025 157.48 cm 45 kg/m2 005621.72 g 169/103 mm[Hg] Thi Jennifer [facility] 05/03/2025 14:46:30 Date Recorded Body height Body mass index (BMI) Body weight Systolic And Diastolic Provider Name and Address Organization Details Last Updated DateTime 07/03/2024 157.48 cm 41 kg/m2 726200.69 g 132/84 mm[Hg] Amena Tompkins [facility] 07/03/2024 14:35:47 Social History Question Answer Notes LastModified by Organizat ion Details LastModified Time Tobacco Smoking Status Never Smoker Amena Tompkins [facility] 07/03/2024 14:41:34 Do You Have An Advance Directive? No [email or web address] Information n ot available 05/03/2025 How Many Years Have You Consumed Alcohol? 10 Information not available 05/03/2025 Are You Blind Or Do You Have Difficulty Seeing? No Information n ot available 07/03/2024 What Is Your Level Of Caffeine Consumption? Moderate Information not available 07/03/2024 How Much Tobacco Do You Chew? None [email or web address] Information not available 05/03/2025 In The 14 Days Before Symptom Onset, Have You Had Close Contact With A Laboratory-confirm ed COVID-19 While That Case Was Ill? No Information n ot available 07/03/2024 In The 14 Days Before Symptom Onset, Have You Had Close Contact With A Person Who Is Under Investigation For COVID-19 While That Person Was Ill? No Information not available 07/03/2024 Have You Been To An Area Known To Be High Risk For COVID-19? No Information not available 07/03/2024 Are You Deaf Or Do You Have Serious Difficulty Hearing? No Information not available 07/03/2024 What Type Of Diet Are You Following? REGULAR Information n ot available 07/03/2024 What Is The Highest Grade Or Level Of School You Have Completed Or The Highest Degree You Have Received? [id number] [email or web address] Information not available 05/03/2025 Are There Any Guns Present In Your Home? No Information not available 07/03/2024 Do You Use Protection During Sex? No Information not available 07/03/2024 Do You Use Your Seat Belt Or Car Seat Routinely? Yes Information not available 07/03/2024 Are You Sexually Active? Yes Information not available 07/03/2024 Do You Have Smoke And Carbon Monoxide Detectors In Your Home? Yes Information not available 07/03/2024 How Much Tobacco Do You Smoke? No [email or web address] Information not available 05/03/2025 Do You Use Sunscreen Routinely? Yes Information not available 07/03/2024 Have You Used IV Drugs? No [email or web address] Information not available 05/03/2025 Do You Have Difficulty Walking Or Climbing Stairs? No Information not available 07/03/2024 Sex: Unknown Functional Status Question Answer Note LastModified by Organizat ion Details LastModified Time Do you use any illicit or recreational drugs? No Information not available 07/03/2024 What is your level of alcohol consumption? Occasional Information not available 07/03/2024 Are you able to walk independently without assistance or assistive devices? [email or web address] Information not available 07/03/2024 Are you able to care for yourself independently? Yes Information not available 07/03/2024 What is your occupation? Unemployed [email or web address] Information not available 05/03/2025 Do you have difficulty dressing, bathing, grooming, or toileting? No Information not available 07/03/2024 What is your exercise level? Occasional [email or web address] Information not available 05/03/2025 Mental Status Question Answer Note LastModified by Organization D etails LastModified Time Do you feel stressed (tense, restless, nervous, or anxious, or unable to sleep at night)? [id number] [email or web address] Information not available 05/03/2025 Family History Relationship Description Onset Age of this Age Resolved Age Notes LastModified by Organization Details LastModified Time Maternal Aunt Malignant neoplasm of breast Not available 2023 14:43:47 Mother Heart disease Not available 2023 14:43:59 Mother Diabetes mellitus Not available 2023 14:44:09 Mother Hypertensive disorder Not available 2023 14:44:18 Mother Disorder of thyroid gland Not available 2023 14:44:29 Medical History Condition Response Allergies (Food, seasonal, environmental ) N Other N Breast Cancer N Drug/Latex Allergies/Reactions N Blood Transfusion N Dermatologic Disorders N Lung Disease N Defects or Inherited Disease N Breast Problem N Gestational Diabetes N Hematologic disorders N Anesthesia Complications N History of STI Y Deep Vein Thrombosis N Polycystic ovary syndrome N Anxiety Disorder N Autoimmune disease N Arthritis N Infertility N Polyps N Acid Reflux (GERD) N History of abnormal pap Y Cancer N Stroke N Varicosities N Neurologic/Epilepsy N Endometriosis N High Cholesterol N Headaches N Fibromyalgia N Kidney Disease N Heart Problems N Kidney or Bladder Problems N Thyroid Problems N GI Problems N Eating Disorder N Anemia N Art (IVF or FET) N Psychiatric Illness N Ovarian Cancer N Diabetes N Pulmonary (TB, Asthma) N Hepatitis/Liver Disease N No Past Medical History N Eczema N Urinary Tract Infection N Abuse/Domestic Violence N Asthma N Trauma/Violence N Depression/ depression N Heart Disease N Pre-Eclampsia N Hypertension Y Osteoporosis N Thrombophilias N Gynecological History Statement/Question Response Date of Last Mammogram On BCP's at Conception? N N Was last menstrual period normal Y STIs/STDs Y HPV Vaccine N Colposcopy 05/03/2025 Duration of Flow (days) 6 Current Control Method Menopause Age at First Child 14 Date of Last Colonoscopy Sexually Active? Y None Menses Monthly N Age of first menstrual cycle 13 Date of Last Pap Smear 05/22/2024 Sexual Problems? Y LMP Unknown N Obstetrics History GPAL:G 5 P 2 0 3 2 Type Value Full Term 2 Induced 1 Living 2 Ectopics 2 Total 5 Past Encounters Encounter ID Performer Location Encounter Start Date Encounter Closed Date Diagnosis/Indication Diagnosis SNOMED-CT Code Diagnosis ICD10 Code Diagnosis IMO Codes Diagnosis Note [id number] Singh Davis MD [facility] [address] [address] 07/03/2024 13:22:03 07/03/2024 15:34:48 Abnormal cervical Papanicolaou smear [id number] R87.619 this patient is a 58-year-ol d female with HPV positive Pap with normal cytology. We discussed HPV, cervical dysplasia, cervical cancer. We discussed HPV transmissi on, natural history, and dormancy. We discussed cervical dysplasia screening, diagnosis, treatment. She was given precaution s about follow-up. She was warned of the potential cervical cancer as an outcome in this situation. We discussed LEEP procedure. We discussed possible cervical incompeten ce as it relates to the LEEP procedure. Talked about colposcopi c exam. we will proceed with a colposcopi c examinatio n. I spent over 20 minutes on the patient's care in total. [id number] Singh Davis MD [facility] [address] [address] 05/03/2025 13:30:11 05/03/2025 15:23:47 Cervical smear: colposcopy needed [id number] R87.619 [id number] Human dejah llomavirus deoxyribonucleic acid detected, high risk on cervical specimen [id number] R87.810 [id number] normal colposcopi c examinatio n, unsatisfac tory, ECC was performed. Health Concerns Section Related Observation LastModified by Organization Detai ls LastModified Time None Recorded Concern Status LastModified by Organization Details LastModified Time None Recorded Advance Directives Directive N: Payers Insurance Date Sequence Insurance Name Policy Number Policy Tyson Covered Member ID Ytson Member ID Guarantor Name 05/02/2025 1 [employer] (POS II) Josh Case [id number] Lianet Escobar Case Notes Date Note Type Note Provider Name and Address Organization Details Recorded Time 07/03/2024 text/html this patient is a 58-year-old female with HPV positive Pap with normal cytology. We discussed HPV, cervical dysplasia, cervical cancer. We discussed HPV transmission, natural history, and dormancy. We discussed cervical dysplasia screening, diagnosis, treatment. She was given precautions about follow-up. She was warned of the potential cervical cancer as an outcome in this situation. We discussed LEEP procedure. We discussed possible cervical incompetence as it relates to the LEEP procedure. Talked about colposcopic exam. we will proceed with a colposcopic examination. I spent over 20 minutes on the patient's care in total. Singh Davis MD [address], [place], [address], [facility] 07/03/2024 15:19:14 05/03/2025 text/html this patient presents for colposcopic examination for HPV positive Pap smear. The procedure was explained to the patient in detail. She understands the procedure. She understands the risks, benefits, and alternatives. She has completed the informed consent process and is ready to proceed. Singh Davis MD [address], [place], [address], [facility] 05/03/2025 15:22:40 OBGyn Episode Ob Episode Information Episode Created Date Number of Fetuses Patient Bloodtype Patient rh Status Prepregnancy Weight lbs Domestic Partner Domestic Partner Phone Father Name Children'S Librarian Status 07/03/20 24 1 CLOSED Fetus Data First Name Last Name Admitted to NICU Weight (g) Sex Living Outcome Pediatric Complications Fetus ID Race Codes Race Delivery Type Full Term [id number] Vaginal Delivery Miguel Angel Calculation Initial Miguel Angel Date Initial Exam Date Initial Exam Provider Initial Ultrasound Date Last Menstrual Period Date Ultra Sound Weeks Gestation 0 Eighteen To Twenty Week Miguel Angel Update Ultra Sound Date Fundal Height At Umbil Quickening Date Ultra Sound Latest Weeks Gestation Final Miguel Angel Confirmed By Final Miguel Angel Confirmed Date Final Miguel Angel Date Ultra Sound Latest Days Gestation 0 0 Menstrual History Last Menstrual Date Menses Monthly On Bcp Conception Prior Menses Frequency Hcg Plus Date Menarche Onset Age Delivery Information Delivery Date Delivery Type Labor Anesthesia Weeks Gestation Incision Type Labor Labor Length Hrs Delivered By Post Complications Tubal Sterilization Discharge Date Comments 5 Discharge Information Feeding Method Contraceptive Method Maternal HG B and HCT Levels Ob Episode Information Episode Created Date Number of Fetuses Patient Bloodtype Patient rh Status Prepregnancy Weight lbs Domestic Partner Domestic Partner Phone Father Name Children'S Librarian Status 07/03/20 24 1 CLOSED Fetus Data First Name Last Name Admitted to NICU Weight (g) Sex Living Outcome Pediatric Complications Fetus ID Race Codes Race Delivery Type , Induced [id number] Miguel Angel Calculation Initial Miguel Angel Date Initial Exam Date Initial Exam Provider Initial Ultrasound Date Last Menstrual Period Date Ultra Sound Weeks Gestation 0 Eighteen To Twenty Week Miguel Angel Update Ultra Sound Date Fundal Height At Umbil Quickening Date Ultra Sound Latest Weeks Gestation Final Miguel Angel Confirmed By Final Miguel Angel Confirmed Date Final Miguel Angel Date Ultra Sound Latest Days Gestation 0 0 Menstrual History Last Menstrual Date Menses Monthly On Bcp Conception Prior Menses Frequency Hcg Plus Date Menarche Onset Age Delivery Information Delivery Date Delivery Type Labor Anesthesia Weeks Gestation Incision Type Labor Labor Length Hrs Delivered By Post Complications Tubal Sterilization Discharge Date Comments 9 Discharge Information Feeding Method Contraceptive Method Maternal HG B and HCT Levels Ob Episode Information Episode Created Date Number of Fetuses Patient Bloodtype Patient rh Status Prepregnancy Weight lbs Domestic Partner Domestic Partner Phone Father Name Children'S Librarian Status 07/03/20 24 1 CLOSED Fetus Data First Name Last Name Admitted to NICU Weight (g) Sex Living Outcome Pediatric Complications Fetus ID Race Codes Race Delivery Type Ectopic [id number] Miguel Angel Calculation Initial Miguel Angel Date Initial Exam Date Initial Exam Provider Initial Ultrasound Date Last Menstrual Period Date Ultra Sound Weeks Gestation 0 Eighteen To Twenty Week Miguel Angel Update Ultra Sound Date Fundal Height At Umbil Quickening Date Ultra Sound Latest Weeks Gestation Final Miguel Angel Confirmed By Final Miguel Angel Confirmed Date Final Miguel Angel Date Ultra Sound Latest Days Gestation 0 0 Menstrual History Last Menstrual Date Menses Monthly On Bcp Conception Prior Menses Frequency Hcg Plus Date Menarche Onset Age Delivery Information Delivery Date Delivery Type Labor Anesthesia Weeks Gestation Incision Type Labor Labor Length Hrs Delivered By Post Complications Tubal Sterilization Discharge Date Comments 6 Discharge Information Feeding Method Contraceptive Method Maternal HG B and HCT Levels Ob Episode Information Episode Created Date Number of Fetuses Patient Bloodtype Patient rh Status Prepregnancy Weight lbs Domestic Partner Domestic Partner Phone Father Name Children'S Librarian Status 07/03/20 24 1 CLOSED Fetus Data First Name Last Name Admitted to NICU Weight (g) Sex Living Outcome Pediatric Complications Fetus ID Race Codes Race Delivery Type Ectopic [id number] Miguel Angel Calculation Initial Miguel Angel Date Initial Exam Date Initial Exam Provider Initial Ultrasound Date Last Menstrual Period Date Ultra Sound Weeks Gestation 0 Eighteen To Twenty Week Miguel Angel Update Ultra Sound Date Fundal Height At Umbil Quickening Date Ultra Sound Latest Weeks Gestation Final Miguel Angel Confirmed By Final Miguel Angel Confirmed Date Final Miguel Angel Date Ultra Sound Latest Days Gestation 0 0 Menstrual History Last Menstrual Date Menses Monthly On Bcp Conception Prior Menses Frequency Hcg Plus Date Menarche Onset Age Delivery Information Delivery Date Delivery Type Labor Anesthesia Weeks Gestation Incision Type Labor Labor Length Hrs Delivered By Post Complications Tubal Sterilization Discharge Date Comments 6 Discharge Information Feeding Method Contraceptive Method Maternal HG B and HCT Levels Ob Episode Information Episode Created Date Number of Fetuses Patient Bloodtype Patient rh Status Prepregnancy Weight lbs Domestic Partner Domestic Partner Phone Father Name Children'S Librarian Status 07/03/20 24 1 CLOSED Fetus Data First Name Last Name Admitted to NICU Weight (g) Sex Living Outcome Pediatric Complications Fetus ID Race Codes Race Delivery Type Full Term [id number] Vaginal Delivery Miguel Angel Calculation Initial Miguel Angel Date Initial Exam Date Initial Exam Provider Initial Ultrasound Date Last Menstrual Period Date Ultra Sound Weeks Gestation 0 Eighteen To Twenty Week Miguel Angel Update Ultra Sound Date Fundal Height At Umbil Quickening Date Ultra Sound Latest Weeks Gestation Final Miguel Angel Confirmed By Final Miguel Angel Confirmed Date Final Miguel Angel Date Ultra Sound Latest Days Gestation 0 0 Menstrual History Last Menstrual Date Menses Monthly On Bcp Conception Prior Menses Frequency Hcg Plus Date Menarche Onset Age Delivery Information Delivery Date Delivery Type Labor Anesthesia Weeks Gestation Incision Type Labor Labor Length Hrs Delivered By Post Complications Tubal Sterilization Discharge Date Comments 5 Discharge Information Feeding Method Contraceptive Method Maternal HG B and HCT Levels
--- OUTSIDE RECORDS SUMMARY | 2025-08-06 08:14 | XMS_ITS | Encounter Summary ---
Author Organization [facility] Address [address] [place] [address] Phone Care Team Providers Care Market Research Specialist Name Role Phone Naresh Neal MD Primary Care Provider + Encounter Details Date Type Department Care Team (Late st Contact Info) Description 09/08/2017 Orders Only [facility] ProviderShannan MD [address] [phone] Social History Tobacco Use Types Packs/Day Years Used Date Smoking Tobacco: Never Smokeless Tobacco: Never Alcohol Use Standard Drinks/Week Comments No 0 (1 standard drink = 0.6 oz pur e alcohol) Comments Unknown Sex and Gender Information Value Date Recorded Sex Assigned at Not on file Legal Sex Female 2:33 PM DISTANCE EDUCATION FACULTY LIAISON Gender Identity Not on file Sexual Orientation Not on file documented as of this encounter Functional Status * BP Location Answer Date of Assessment Author Left arm 09/08/2017 1:35 PM DISTANCE EDUCATION FACULTY LIAISON Yesenia Wakefield * BP Location Answer Date of Assessment Author Left arm 09/08/2017 1:35 PM DISTANCE EDUCATION FACULTY LIAISON Yesenia Wakefield documented as of this encounter Plan of Treatment Not on file documented as of this encounter Procedures Procedure Name Priority Date/Time Associated Diagnosis Comments DISCHARGE LABORATORY CUMULATIVE REPORT 09/08/2017 12:00 AM DISTANCE EDUCATION FACULTY LIAISON documented in this encounter Results * DISCHARGE LABORATORY CUMULATIVE REPORT (09/08/2017 12:00 AM DISTANCE EDUCATION FACULTY LIAISON) Narrative 09/08/2017 12:00 AM DISTANCE EDUCATION FACULTY LIAISON Ordered by an unspecified provider. us Historical Provider LAB BLOOD ORDERABLES Yue l Result documented in this encounter Visit Diagnoses Not on filedocumented in this encounter Care Teams Market Research Specialist Relationship Specialty Start Date End Date Naresh Neal MD [address] [place] [address] PCP - General 12/04/16 documented as of this encounter
--- OUTSIDE RECORDS SUMMARY | 2025-08-06 08:14 | XMS_ITS | Clinical Summary ---
Author Organization [employer] [facility] Address [address] [place] [address] Care Team Providers Care Engineering Systems Analyst Name Role Phone Unavailable Primary Care Provider Unavailabl e Social History Tobacco Use Types Packs/Day Years Used Date Smoking Tobacco: Never Assessed Comments Unknown Sex and Gender Information Value Date Recorded Sex Assigned at Not on file Legal Sex Female 9:50 AM CDT Gender Identity Not on file Sexual Orientation Not on file Plan of Treatment Health Maintenance Due Date Last Done Comments DTAP/TDAP/TD VACCINES (1 - Tdap) 1986 HEPATITIS B VACCINES (1 of 3 - 19+ 3-dose series) 07/08 HPV/Cotest (21-29) 1988 CERVICAL CANCER SCREENING 1997 HPV/Cotest (30-65) 1997 PAP SMEAR 1997 BREAST CANCER SCREENING 2007 COLORECTAL SCREENING 2012 Colorectal Cancer Screening 2012 FIT-DNA Q 3 years 2012 FIT/FOBT Q 1 year 2012 Flex Sig/CT Colonography Q 5 years 2012 ZOSTER VACCINE (1 of 2) 2017 INFLUENZA VACCINE (#1) 2025
== END 2025-08-06 08:35 | disposition home or self-care (01) ==
PROVIDERS: Emergency Provider Registered Nurse
DX: J32.9 Chronic sinusitis, unspecified (principal); I10 Essential (primary) hypertension; E03.9 Hypothyroidism, unspecified
CPT/HCPCS: 99213; G0463